=== PATIENT | male | born 1950 | race Caucasian/White ===

== ENCOUNTER 2023-12-06 07:45 | Day surgery (SDC) | payer OTHER ==
[2023-12-03 10:34] LABS: Absolute Eosinophils 0.1 K/uL (0-0.5); Absolute Lymphocytes (CBC) 1.4 K/uL (0.7-4.9); Absolute Monocytes 0.5 K/uL (0.1-1.3); Absolute Neutrophil 2.3 K/uL (1.8-8.0); Basophils % 0.5 % (0-1.3); Eosinophils % 2.4 % (0-4.4); Hematocrit 43.7 % (39.6-49.0); Hemoglobin 14.3 g/dL (13.6-17.9); Lymphocytes % 33.4 % (15.3-44.8); MCHC 32.8 g/dL (32.0-36.0); MCV 82.3 fL (80-100); MPV 8.9 fL (7.6-11.3); Neutrophils % 52.7 % (41.7-73.7); Platelets 198 thou/uL (152-406); RBC Red Blood Cell Count 5.31 M/uL (4.33-5.43); Red Cell Distribution Width 15.5 % (12.1-15.2)
[2023-12-03 10:41] LABS: PT Prothrombin Time 10.8 SECONDS (9.5-12.5); PTT, Activated Partial Thromb 33.4 SECONDS (24.3-36.9); Protime INR 0.98
[2023-12-03 10:45] LABS: Anion Gap 5.6 mEq/L (5.0-15.0); Potassium 4.6 mEq/L (3.5-5.1)
--- NOTE | 2023-12-03 10:51 | RAD REPORT ---
EXAM DESCRIPTION: RAD - Chest Pa And Lat (2 Views) - 12/03/2023 10:37 am CLINICAL HISTORY: Pre op pending heart catheterization Chest pain. COMPARISON: No comparisons TECHNIQUE: PA and lateral views of the chest were obtained. FINDINGS: The lungs are hyperexpanded compatible with COPD. The heart is upper limit of normal in si ze. No fracture or aggressive bony process. IMPRESSION: COPD without acute process identified. The USPSTF recommends annual screening for lung cancer with low-dose CT (LDCT) in adults aged 50 to 8 0 years who have a 20 pack-year smoking history and currently smoke or have quit within the past 15 y ears.
--- NOTE | 2023-12-03 12:02 | EKG ---
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
[2023-12-06] MEDS ORDERED: NA CHLORIDE 0.9% 500 ML ONE (08:01)
[2023-12-06] MEDS ORDERED: HEPA 1000U/500MLS 2,000 UNIT/1,000 ML BAG IV ONE (08:35)
[2023-12-06] MEDS ORDERED: VERAPAMIL HCL 10 MG/4 ML VIAL IV ONE (08:36)
[2023-12-06] MEDS ORDERED: LIDOCAINE 1% 20 ML MDV ONE (08:36)
[2023-12-06] MEDS ORDERED: TICAGRELOR 90 MG TABLET PO ONE (08:37)
[2023-12-06] MEDS ORDERED: ATROPINE SULF 1 MG/10 ML SYR IV ONE (08:37)
[2023-12-06] MEDS ORDERED: MIDAZOLAM HCL 2 MG/2 ML INJ ONE (08:37)
[2023-12-06] MEDS ORDERED: HEPARIN 10,000 UNIT/10 ML VIAL IV ONE (08:37)
[2023-12-06] MEDS ORDERED: HEPARIN 5000 UNIT/ML 1 ML VIAL ONE (08:37)
[2023-12-06] MEDS ORDERED: FENTANYL CITR 100 MCG/2 ML ONE (08:37)
[2023-12-06] MEDS ORDERED: FLUMAZENIL 0.1 MG/ML (5 mL VIAL) IV ONE (08:38)
[2023-12-06] MEDS ORDERED: ASPIRIN 325 MG TAB ONE (08:38)
[2023-12-06] MEDS ORDERED: CLOPIDOGREL 75 MG TABLET ONE (08:38)
[2023-12-06] MEDS ORDERED: NALOXONE 0.4 MG/ML VIAL ONE (08:38)
[2023-12-06 11:46] VITALS: TEMP 98.3; O2SAT 98
[2023-12-06 12:22] VITALS: BP 130/64
--- NOTE | 2023-12-06 20:23 | OP ---
Date of Procedure: 12/06/2023 Surgeon: Sonu Daniel Procedures Performed: 1.Left heart catheterization. 2.Selective coronary angiogram. 3.Renal angiogram. Indication For Procedure: Shortness of breath, abnormal stress test, and resistant hypertension with abnormal renal ultrasound. Access: Right radial, closed by TR band. Sedation Time: 30 minutes with 1 of Versed and 25 of fentanyl. Complications: None. Estimated Blood Loss: Less than 50 cc. Description Of Procedure: After risks, benefits, and alternatives were explained to the patient, the patient agreed to proceed with the procedure and signed informed consent. The patient was brought b [facility] to the catheter builder, prepped and draped in sterile fashion. Time-out was performed. Sedation was ad ministered. Right radial ultrasound-guided micropuncture technique, access was obtained. [place] 4 ca theter was advanced to the LV cavity. Pullback did not show any gradient. LVEDP was obtained. Then , same catheter was used for selective angiogram of the left and right coronary systems and the left subclavian artery and the ORTIZ. The catheter was exchanged for a JR4 catheter and used for the renal angiogram. At the end of procedure, catheter was removed. Sheath was removed. TR band was applied . Hemostasis achieved and the patient was moved back to recovery in stable condition. Findings: 1.Left main ostial 20% disease. 2.LAD, diffuse heavy atherosclerosis and calcifications, proximal diffuse 60% to 70% disease, then m id normal, then there is a mid focal 90% disease, then mild LI, then mid to distal 90% disease. It g cleve a small diagonal that got diffuse 80% disease. 3.Left circ, proximal to mid 70% disease, continues of the large OM1 and then gives another OM2. 4.RCA, proximal to mid 60% to 70% disease and mild luminal irregularities. 5.RPDA, RPLV, mild LI. 6.Left subclavian/ORTIZ is normal. 7.LVEDP is 16 mmHg. Renal angiogram findings: 1.Right renal artery is normal. 2.Left renal artery is normal. Assessment/plan: 1.Significant 3-vessel disease. We will consult CT Surgery to evaluate for possible arterial bypass , especially on the LAD since he has mid to distal LAD disease that may need PCI prior to the bypass. 2.Normal renal arteries. The plan will be to consult CT Surgery as above and for CABG versus PCI. JYOTSNA/BHARATHI Voice ID: [id number] Report ID: [id number]
== END 2023-12-06 12:20 | disposition home or self-care (01) ==
LOC: CCL 07:45
PROVIDERS: ATTEND Internal Medicine Interventional Cardiology
DX: I25.10 Atherosclerotic heart disease of native coronary artery without angina pectoris (principal); R93.41 Abnormal radiologic findings on diagnostic imaging of renal pelvis, ureter, or bladder; I10 Essential (primary) hypertension; I1A.0 Resistant hypertension; E78.5 Hyperlipidemia, unspecified; R00.1 Bradycardia, unspecified; Z87.891 Personal history of nicotine dependence; Z79.82 Long term (current) use of aspirin; Z79.899 Other long term (current) drug therapy
CPT/HCPCS: 93005; 85025; 80048; 36415; 85610; 85730; 71046; 36252; 93458; 76937; C1893; Q9967; J1644; J2001; J2250; J3010; J7040; 99152; 99153; J0461; J2310